=== PATIENT | female | born 1945 | race Caucasian/White ===

== ENCOUNTER 2021-02-20 19:37 | Emergency (ER) | payer OTHER, SELFPAY ==
[2021-02-20] VITALS (10 sets, daily range): BP systolic 122–193; BP diastolic 69–97; PULSE 70–75; RESP 14–24; TEMP 36.4; O2SAT 95–99
--- NOTE | 2021-02-20 19:42 | DI.RAD.S_ITS ---
PROCEDURE: XR CHEST 2V INDICATIONS: shortness of breath TECHNIQUE: 2 views of the chest were acquired. COMPARISON: None. FINDINGS: Surgical changes and devices: Apparent vascular stent projecting superior to the aortic arch.. Lungs and pleura: There is hyperaeration of the lungs with flattening of the hemidiaphragms. Increased retrosternal clear space. No pleural effusions or pneumothorax. No focal airspace disease. Mediastinum: Mediastinal contours are normal. Heart size is normal. Bones and chest wall: No suspicious bony abnormalities. Soft tissues appear unremarkable. Diffuse osteopenia. Age-indeterminate a chronic appearing anterior compression deformity of the lower thoracic spine. IMPRESSION: Chest without acute cardiopulmonary abnormalities. Findings suggestive of sequela of chronic obstructive pulmonary physiology. Dictated by: Georges Hung M.D. on 02/20/2021 at 20:22 Approved by: Georges Hung M.D. on 02/20/2021 at 20:24
[2021-02-20 21:27] LABS: Add Manual Diff / Slide Review NO; Basophils Absolute Auto 0 /uL (0-100); Basophils Percent Auto 0.6 % (0-2); Eosinophils Absolute Auto 300 /uL (0-450); Hematocrit 40.3 % (36-46); Hemoglobin 13.6 g/dL (12.0-16.0); Lymphocytes Absolute Auto 2200 /uL (1100-4500); Lymphocytes Percent Auto 32.9 % (25-40); Mean Corpuscular HGB Conc 33.8 % (30-36); Mean Corpuscular Hemoglobin 31.4 PG (26-34); Mean Corpuscular Volume 92.7 fL (80-100); Monocytes Absolute Auto 500 /uL (0-900); Monocytes Percent Auto 7.5 % (3-14); Neutrophils Absolute Auto 3500 /uL (1500-7000); Platelet Count 253 X10^3/uL (150-400); Red Blood Cell Count 4.34 X10^6/uL (4.0-5.2); Red Cell Distribution Width 13.1 % (11.6-14.8); White Blood Cell Count 6.6 X10^3/uL (4.5-11.0)
[2021-02-20 21:35] LABS: Lactate (Lactic Acid) 1.4 mmol/L (0.7-2.1)
[2021-02-20 21:37] LABS: Alanine Aminotransferase 18 IU/L (<35); Albumin 4.2 g/dL (3.5-5.0); Albumin Globulin Ratio 1.4 (1.0-2.8); Alkaline Phosphatase 75 U/L (38-126); Aspartate Aminotransferase 29 IU/L (14-36); BUN Creatinine Ratio 23.1 (6-22); Bilirubin Total 0.4 mg/dL (0.2-1.3); Blood Urea Nitrogen 15 mg/dL (7-17); Calcium 9.8 mg/dL (8.4-10.2); Carbon Dioxide 31 mmol/L (22-32); Chloride 107 mmol/L (98-107); Estimated Glomerular Filt Rate > 60.0 mL/min (>60); Globulin 3.1 g/dL (1.7-4.1); Glucose 121 mg/dL (80-110); HEMOLYSIS 16 (0-50); Sodium 140 mmol/L (137-145); Total Protein 7.3 g/dL (6.3-8.2)
[2021-02-20 21:39] LABS: COVID19 -Nasal RAPID Negative (Negative)
--- NOTE | 2021-02-20 22:18 | ED_ITS ---
HPI - General Adult General Chief complaint: Shortness of Breath/Dyspnea Stated complaint: SOB Time Seen by Provider: 02/20/21 20:45 Source: patient and EMS Mode of arrival: EMS History of Present Illness HPI narrative: Patient is a 75-year-old female here for evaluation of shortness of breath specifics the shortness of breath on exertion. The symptoms been going on for the past several months. She has been seen at an outside facility for this. She was told that it was anxiety. She has not followed up with her primary doctor. She denies chest pain. No lower extremity swelling. No fevers. No cough. She states that her primary doctor is weaning her off of clonazepam. She is upset with her primary doctor because she went a week without a refill of this medication and she states that she went into detox. She stated this was a very unpleasant experience. She went to walk-in clinic. Was given another prescription for clonazepam. She is here for continued shortness of breath Related Data Previous Rx's Medication Instructions Recorded isosorbide mononitrate 30 mg 30 mg PO DAILY #60 tab 02/20/21 tablet,extended release 24 hr Review of Systems Constitutional Constitutional: Denies fever(s) Cardiovascular Cardiovascular: Denies chest pain, Reports dyspnea and Reports dyspnea on exertion Respiratory Respiratory: Reports dyspnea and Reports dyspnea on exertion Gastrointestinal Gastrointestinal: Reports system reviewed and no additional complaints, except as documented Integumentary/Breasts Skin/Breast: Reports system reviewed and no additional complaints, except as documented Neurologic Neurologic: Reports system reviewed and no additional complaints, except as documented Psychiatric Psychiatric: Reports anxiety Hematologic/Lymphatic On Anticoagulants: No Patient History Medical History Anxiety Hypertension Social History lives independently: Yes Exam Initial Vital Signs Initial Vital Signs: Vital Signs Temperature 97.5 F L 02/20/21 19:40 Pulse Rate 74 02/20/21 19:40 Respiratory Rate 18 02/20/21 19:40 Blood Pressure 150/97 H 02/20/21 19:40 Pulse Oximetry 98 02/20/21 19:40 Const General: cooperative and comfortable HENMT Head: normal to inspection and normocephalic Resp Effort & Inspection: normal respiratory effort Auscultation: clear to auscultation bilaterally Cardio Rate: regular rate Rhythm: regular rhythm GI Inspection: normal to inspection Skin General: no rashes or lesions noted Neuro General: patient alert, patient awake and moves all extremities Speech: speech normal Psych Appearance: well kempt Affect: anxious affect Course Orders Ordered: ED Orders 02/20/21 19:42 XR chest 2V Stat EKG-12 Lead Stat Measure peak expiratory flow ONCE RT Consult Eval and Treat Now 02/20/21 21:00 COVID19 -Nasal swab/Pre-Proc Stat 02/20/21 21:10 Complete Blood Count AUTO DIFF Stat Comprehensive Metabolic Panel Stat Lactate (Lactic Acid) Stat Vital Signs Vital signs: Vital Signs - 8 hr 02/20/21 20:50 02/20/21 20:51 02/20/21 21:19 Pulse Rate 75 74 72 Respiratory Rate Blood Pressure 144/69 H 122/83 Pulse Oximetry 98 99 99 02/20/21 21:30 02/20/21 21:31 02/20/21 22:00 Pulse Rate 74 74 70 Respiratory Rate 14 14 21 Blood Pressure 170/76 H Pulse Oximetry 98 98 96 02/20/21 22:01 02/20/21 22:30 02/20/21 22:44 Pulse Rate 70 73 75 Respiratory Rate 24 16 Blood Pressure 193/84 H 158/78 H Pulse Oximetry 95 98 Medical Decision Making Lab Data Lab results reviewed: Yes I reviewed the patient's lab results. Result diagrams: 02/20/21 21:10 02/20/21 21:10 Labs: Lab Results 02/20/21 02/20/21 02/20/21 Range/Units 21:00 21:10 21:10 WBC 6.6 (4.5-11.0) X10^3/uL RBC 4.34 (4.0-5.2) X10^6/uL Hgb 13.6 (12.0-16.0) g/dL Hct 40.3 (36-46) % MCV 92.7 (80-100) fL MCH 31.4 (26-34) PG MCHC 33.8 (30-36) % RDW 13.1 (11.6-14.8) % Plt Count 253 (150-400) X10^3/uL Neut % (Auto) 54.0 (50-75) % Lymph % (Auto) 32.9 (25-40) % [place] % (Auto) 7.5 (3-14) % Eos % (Auto) 5.0 H (2-4) % Baso % (Auto) 0.6 (0-2) % Neut # (Auto) 3500 (2207-7389) /uL Lymph # (Auto) 2200 (2949-7299) /uL [place] # (Auto) 500 (0-900) /uL Eos # (Auto) 300 (0-450) /uL Baso # (Auto) 0 (0-100) /uL Sodium 140 (137-145) mmol/L Potassium 4.0 (3.4-5.1) mmol/L Chloride 107 (98-107) mmol/L Carbon Dioxide 31 (22-32) mmol/L BUN 15 (7-17) mg/dL Creatinine 0.65 (0.52-1.04) mg/dL Estimated GFR > 60.0 (>60) mL/min BUN/Creatinine Ratio 23.1 H (6-22) Glucose 121 H (80-110) mg/dL Lactate (0.7-2.1) mmol/L Calcium 9.8 (8.4-10.2) mg/dL Total Bilirubin 0.4 (0.2-1.3) mg/dL AST 29 (14-36) IU/L ALT 18 (<35) IU/L Alkaline Phosphatase 75 (38-126) U/L Total Protein 7.3 (6.3-8.2) g/dL Albumin 4.2 (3.5-5.0) g/dL Globulin 3.1 (1.7-4.1) g/dL Albumin/Globulin Ratio 1.4 (1.0-2.8) SARS-CoV-2 (PCR) Negative (Negative) 02/20/21 Range/Units 21:10 WBC (4.5-11.0) X10^3/uL RBC (4.0-5.2) X10^6/uL Hgb (12.0-16.0) g/dL Hct (36-46) % MCV (80-100) fL MCH (26-34) PG MCHC (30-36) % RDW (11.6-14.8) % Plt Count (150-400) X10^3/uL Neut % (Auto) (50-75) % Lymph % (Auto) (25-40) % [place] % (Auto) (3-14) % Eos % (Auto) (2-4) % Baso % (Auto) (0-2) % Neut # (Auto) (2344-0846) /uL Lymph # (Auto) (2489-1227) /uL [place] # (Auto) (0-900) /uL Eos # (Auto) (0-450) /uL Baso # (Auto) (0-100) /uL Sodium (137-145) mmol/L Potassium (3.4-5.1) mmol/L Chloride (98-107) mmol/L Carbon Dioxide (22-32) mmol/L BUN (7-17) mg/dL Creatinine (0.52-1.04) mg/dL Estimated GFR (>60) mL/min BUN/Creatinine Ratio (6-22) Glucose (80-110) mg/dL Lactate 1.4 (0.7-2.1) mmol/L Calcium (8.4-10.2) mg/dL Total Bilirubin (0.2-1.3) mg/dL AST (14-36) IU/L ALT (<35) IU/L Alkaline Phosphatase (38-126) U/L Total Protein (6.3-8.2) g/dL Albumin (3.5-5.0) g/dL Globulin (1.7-4.1) g/dL Albumin/Globulin Ratio (1.0-2.8) SARS-CoV-2 (PCR) (Negative) Imaging Data Chest x-ray: Radiologist's Impression: [address] [address] XRay Report Signed Patient: Luzma Frank MR#: [id number] : 1945 Acct:[id number] Age/Sex: 75 / F Date of Service: 02/20/21 Loc: ED Accession Number: [id number] ?? Procedure: XR chest 2V Ordering Provider: Zeb Bowers D.O. PROCEDURE:? XR CHEST 2V ? INDICATIONS:? shortness of breath ? TECHNIQUE:? 2 views of the chest were acquired.? ? COMPARISON:? None. ? FINDINGS:? ? Surgical changes and devices:? Apparent vascular stent projecting superior to the aortic arch..? ? Lungs and pleura:? There is hyperaeration of the lungs with flattening of the hemidiaphragms.? Increased retrosternal clear space.? No pleural effusions or pneumothorax.? No focal airspace disease. ? Mediastinum:? Mediastinal contours are normal.? Heart size is normal.? ? Bones and chest wall:? No suspicious bony abnormalities.? Soft tissues appear unremarkable.? Diffuse osteopenia.? Age-indeterminate a chronic appearing anterior compression deformity of the lower thoracic spine. ? IMPRESSION:? Chest without acute cardiopulmonary abnormalities.? Findings suggestive of sequela of chronic obstructive pulmonary physiology. ? ? Dictated by: Georges Hung M.D. on 02/20/2021 at 20:22 ? ? Approved by: Georges Hung M.D. on 02/20/2021 at 20:24? ECG Data Attestation: I personally reviewed and interpreted this ECG as follows: Interpretation: Sinus rhythm Ventricular rate of 73 Normal axis Normal QRS Normal QTC No ST T wave changes MDM Narrative Medical decision making narrative: Patient has had shortness of breath for the past several months. Her EKG is unremarkable. Vital signs unremarkable. Physical exam is unremarkable. Chest x-ray is negative. Low suspicion for pneumonia. Low suspicion for ACS. Patient is obviously very anxious. She was very focused on the issue that she had with her clonazepam prescription in her primary doctor. She also states that she is out of her isosorbide. She states that ?no one ?will refill it for her. She has not seen her primary doctor to discuss the problems breathing. I feel that no further workup is needed in the emergency department based on her h istory and physical what has been done so far here in the ER. I suspect that there is a strong anxiety component to her symptoms. She was informed that she needs to follow up with her primary doctor to discuss further workup if needed with pulmonology or pulmonary function testing. She was given return precautions. She expressed understanding agreement. Discharge Plan Departure Patient Disposition: Home Clinical Impression: Shortness of breath on exertion Instructions: How to Manage Shortness of Breath Activity Restrictions/Additional Instructions: I do recommend that you talk with your primary doctor about further workup to include the indications for either pulmonary function test or a referral to see pulmonology. Continue to take all of your medications as directed. Return to the emergency department for any new or worsening symptoms Prescriptions: New isosorbide mononitrate 30 mg tablet extended release 24 hr 30 mg PO DAILY Qty: 60 2RF Referrals: Tommy Cintron MD [Primary Care Provider] -
== END 2021-02-20 23:26 | disposition home or self-care (01) ==
PROVIDERS: Emergency Provider Emergency Medicine; PCP Family Medicine
DX: R06.02 Shortness of breath (principal); I10 Essential (primary) hypertension; Z20.822 Contact with and (suspected) exposure to COVID-19
CPT/HCPCS: 71046; 80053; 83605; 85025; 87635; 93005; 93010; 99283; 99284; C9803

== ENCOUNTER → 2022-06-14 14:14 | Outpatient (CLI) | payer OTHER, SELFPAY ==
--- NOTE | 2022-06-14 | DI.MRI.S_ITS ---
PROCEDURE: MR LUMBAR SPINE WO CON INDICATIONS: Spinal stenosis, lumbar region TECHNIQUE: Noncontrast sagittal T1 spin echo and T2 fast echo, sagittal STIR, and T2 fast spin echo through the lumbar spine. In cases with scoliosis, additional coronal T2 fast spin echo may be performed. COMPARISON: [facility], MR, L-SPINE WITHOUT CONTRAST, 12/01/2016, 16:27. [facility], CR, XR LUMBAR SPINE 2 OR 3 VIEWS, 08/23/2021, 16:13. FINDINGS: Image quality: Diagnostic. Alignment and Curvature: Mild levoconvex scoliotic curvature is noted. Bone Marrow: Marrow is of normal overall signal. No acute vertebral body compression fractures. There is a remote mild T12 anterior wedge deformity, with 10% loss of height anteriorly, which is similar to 2017. Spinal Cord: Conus medullaris terminates at the L1 level. Visualized cord demonstrates normal signal and size. Paraspinous Soft Tissues: No paravertebral masses. T11-T12: Mild loss of disc height is seen. Loss of disc signal is seen. Mild to moderate disc bulge is seen, which is eccentric to the left. No significant neural foraminal or central canal narrowing can be seen. T12-L1: The disc height is well-preserved. Loss of disc signal is seen at this level. Mild disc bulge is seen, with a central/left disc osteophyte protrusion. No significant neural foraminal or central canal narrowing can be seen. Stable from the prior study. L1-L2: The disc height is well-preserved. Loss of disc signal is seen at this level. Mild generalized disc bulge is seen. Mild facet joint hypertrophy is seen. There is mild right-sided and no left-sided neural foraminal narrowing. Minimal central canal narrowing is seen. There is mild progression compared to 2017. L2-L3: The disc height is well-preserved. Loss of disc signal is seen at this level. Mild to moderate disc bulge is seen. Mild to moderate facet hypertrophy is seen. There is mild right-sided and no left-sided neural foraminal narrowing. [id number] central canal narrowing is seen. These imaging findings have progressed compared to the prior study. L3-L4: Mild loss of disc height is seen. Loss of disc signal is seen. Moderate generalized disc bulge is seen, which is eccentric to the left. There is a superimposed central disc protrusion. Moderate facet joint hypertrophy is seen. There is mild left-sided and no right-sided neural foraminal narrowing. Moderate central canal narrowing is seen. These degenerative changes are worse than in 2017. L4-L5: The disc height is well-preserved. Loss of disc signal is seen at this level. Mild to moderate disc bulge is seen. Mild to moderate facet hypertrophy can be seen. There is mild bilateral neural foraminal narrowing seen, right worse than left. Mild central canal narrowing is seen. When comparison is made with the prior images, these findings are similar. L5-S1: The disc height is well-preserved. Loss of disc signal is seen at this level. Mild generalized disc bulge is seen. Moderate facet joint hypertrophy is seen. No significant neural foraminal or central canal narrowing can be seen. When comparison is made with the prior images, these findings are similar. Tarlov cysts (perineural cysts) can be seen involving several neural foramina as well as the S2 level, which are unchanged from the prior. IMPRESSION: Multiple levels of lumbar spine degenerative change can be seen, which are progressed at several levels compared to 2017. Mild levoconvex scoliotic curvature is noted. Additional findings: Remote T12 anterior wedge deformity Peroneal cysts Dictated by: Rosalio Peguero M.D. on 06/14/2022 at 16:28 Approved by: Rosalio Peguero M.D. on 06/14/2022 at 16:33
== END ==
PROVIDERS: PCP Nurse Practitioner Family; Referring Provider Physical Medicine & Rehabilitation; Visit Provider Physical Medicine & Rehabilitation
DX: M48.062 Spinal stenosis, lumbar region with neurogenic claudication (principal); M47.816 Spondylosis without myelopathy or radiculopathy, lumbar region; M47.817 Spondylosis without myelopathy or radiculopathy, lumbosacral region; M41.9 Scoliosis, unspecified; G96.191 Perineural cyst; M48.54XS Collapsed vertebra, not elsewhere classified, thoracic region, sequela of fracture; Z95.5 Presence of coronary angioplasty implant and graft
CPT/HCPCS: 72148

== ENCOUNTER 2023-10-02 12:15 | Emergency (ER) | payer MEDICARE, OTHER, SELFPAY ==
[2023-10-02] VITALS (17 sets, daily range): BP systolic 107–167; BP diastolic 53–127; PULSE 58–98; RESP 14–18; TEMP 37.3; O2SAT 93–98; BMI 21.0
--- NOTE | 2023-10-02 12:38 | DI.RAD.S_ITS ---
PROCEDURE: XR CHEST 1V INDICATIONS: chest pain TECHNIQUE: One view of the chest was acquired. COMPARISON: [facility], CR, XR CHEST 2V, 02/20/2021, 20:01. FINDINGS: Surgical changes and devices: Coronary artery stent, question cholecystectomy clips Lungs and pleura: Lungs are clear. No pleural effusions or pneumothorax. Mediastinum: Mediastinal contours appear normal. Heart size is normal. Bones and chest wall: No suspicious bony lesions. Overlying soft tissues appear unremarkable. IMPRESSION: No acute cardiopulmonary abnormality is seen. Dictated by: Urbano Maxwell M.D. on 10/02/2023 at 14:18 Approved by: Urbano Maxwell M.D. on 10/02/2023 at 14:19
[2023-10-02 13:02] LABS: Add Manual Diff / Slide Review NO; Basophils Absolute Auto 100 /uL (0-100); Basophils Percent Auto 0.6 % (0-2); Eosinophils Absolute Auto 200 /uL (0-450); Hematocrit 42.2 % (36-46); Hemoglobin 14.1 g/dL (12.0-16.0); Lymphocytes Absolute Auto 600 /uL (1100-4500); Lymphocytes Percent Auto 3.2 % (25-40); Mean Corpuscular HGB Conc 33.4 % (30-36); Mean Corpuscular Hemoglobin 30.7 PG (26-34); Monocytes Absolute Auto 1000 /uL (0-900); Monocytes Percent Auto 5.7 % (3-14); Neutrophils Absolute Auto 15500 /uL (1500-7000); Neutrophils Percent Auto 89.5 % (50-75); Platelet Count 255 X10^3/uL (150-400); Red Blood Cell Count 4.59 X10^6/uL (4.0-5.2); Red Cell Distribution Width 13.3 % (11.6-14.8); White Blood Cell Count 17.4 X10^3/uL (4.5-11.0)
[2023-10-02 13:07] LABS: INR 0.9 (0.9-1.3)
--- NOTE | 2023-10-02 13:08 | EKG_ITS ---
[address] [address] [address], [place] [address] Test Date: 2023-10-02 Pat Name: Luzma Frank Department: [facility] Room: Gender: Female [employer]ister: HORACIO : 1945 Requested By: Order Number: [id number] Reading MD: Mono Watts Measurements Intervals [place] Rate: 91 P: 75 TX: 134 QRS: 27 QRSD: 68 T: 82 QT: 376 QTc: 462 Interpretive Statements Normal sinus rhythm Electronically Signed On 10-08-2023 9:08:23 PDT by Mono Watts
[2023-10-02 13:09] LABS: PTT Partial Thromboplastin Tim 32 SECONDS (25.1-36.5)
[2023-10-02 13:16] LABS: Alanine Aminotransferase 17 IU/L (<35); Albumin 4.2 g/dL (3.5-5.0); Albumin Globulin Ratio 1.5 (1.0-2.8); Alkaline Phosphatase 84 U/L (38-126); Aspartate Aminotransferase 21 IU/L (14-36); BUN Creatinine Ratio 26.3 (6-22); Bilirubin Total 0.8 mg/dL (0.2-1.3); Blood Urea Nitrogen 20 mg/dL (7-17); Calcium 9.4 mg/dL (8.4-10.2); Carbon Dioxide 18 mmol/L (22-32); Chloride 109 mmol/L (98-107); Creatine Kinase 63 U/L (30-135); Estimated Glomerular Filt Rate > 60 mL/min (>60); Globulin 2.8 g/dL (1.7-4.1); Glucose 191 mg/dL (80-110); HEMOLYSIS < 15 (0-50); Lipase 75 U/L (23-300); Magnesium 1.7 mg/dL (1.6-2.3); Potassium 4.3 mmol/L (3.4-5.1); Sodium 138 mmol/L (137-145)
[2023-10-02 13:29] LABS: NT-proBNP (BNP-Adult 18+) 84 pg/mL (<450); Troponin I < 0.012 ng/mL (0.01-0.034)
--- NOTE | 2023-10-02 14:40 | ED.DIZZY ---
HPI - Dizziness <Jim Chambers MD - Last Filed: 10/03/23 08:17> General Chief Complaint: Dizziness Stated Complaint: ams Time Seen by Provider: 10/02/23 13:40 Source: patient Mode of arrival: EMS History of Present Illness HPI Narrative: 78-year-old female complains of dizziness and generalized weakness today, thinks that she might have been taking less oral intake, does not admit to recently feeling sick, denies fevers, denies headache, denies pain to neck chest upper back lower back flanks, denies pain to abdomen pelvis. Denies lower extremity pain. Denies upper extremity pain. She does not have a spinning sensation to her dizziness. She denies chest pain or shortness of breath. She denies nausea or vomiting. Apparently she spoke with her dentist, who had concerns that she might be having withdrawal from clonazepam, who might have called 911. Patient has not taken clonazepam since June 2023, does not have a current supply, denies recent use. Denies drug or alcohol use. Denies injury or trauma. Denies new medication changes. Related Data Previous Rx's Medication Instructions Recorded isosorbide mononitrate 30 mg 30 mg PO DAILY #60 tabs 02/20/21 tablet,extended release 24 hr Allergies Allergy/AdvReac Type Severity Reaction Status Date / Time prednisone Allergy Verified 10/02/23 12:19 shellfish derived Allergy Verified 10/02/23 12:19 Review of Systems <Jim Chambers MD - Last Filed: 10/03/23 08:17> Review of Systems Narrative: see HPI Patient History <Jim Chambers MD - Last Filed: 10/03/23 08:17> Medical History Anxiety Hypertension Social History lives independently: Yes Smoking Status: Unknown if ever smoked Smoking Status: Unknown if ever smoked alcohol intake frequency: holidays/special occasions only Substance Use Type: does not use Exam <Jim Chambers MD - Last Filed: 10/03/23 08:17> Narrative Exam Narrative: GENERAL: Well-developed patient, in mild distress. HEAD: Atraumatic. Normocephalic. EYES: Pupils equal round and reactive. Extraocular motions intact. No scleral icterus. No injection or drainage. ENT: Nose without bleeding, purulent drainage. Throat without erythema, tonsillar hypertrophy or exudate. Airway patent. NECK: Trachea midline. Non tender CARDIOVASCULAR: Regular rate and rhythm without murmurs, gallops, or rubs. RESPIRATORY: Clear to auscultation. Breath sounds equal bilaterally. No wheezes, rales, or rhonchi. GASTROINTESTINAL: Abdomen soft, non-tender, nondistended. EXTREMITIES: No edema or joint tenderness. BACK: Nontender without deformity or crepitance. No flank tenderness. NEURO: AOx3. Nonfocal neuro exam. Cranial nerves unremarkable. Motor 5/5 upper extremities. Motor 5/5 lower extremities. [id number] testing normal and brisk. SKIN: No rash or erythema of visible areas Initial Vital Signs Initial Vital Signs: Vital Signs Temperature 99.1 F 10/02/23 12:15 Pulse Rate 98 H 10/02/23 12:15 Respiratory Rate 14 10/02/23 12:15 Blood Pressure 167/124 H 10/02/23 12:15 Pulse Oximetry 96 10/02/23 12:15 Oxygen Delivery Method Room Air 10/02/23 12:15 <Zeb Bowers DO - Last Filed: 10/03/23 01:16> Initial Vital Signs Initial Vital Signs: Vital Signs Temperature 99.1 F 10/02/23 12:15 Pulse Rate 98 H 10/02/23 12:15 Respiratory Rate 14 10/02/23 12:15 Blood Pressure 167/124 H 10/02/23 12:15 Pulse Oximetry 96 10/02/23 12:15 Oxygen Delivery Method Room Air 10/02/23 12:15 Course <Jim Chambers MD - Last Filed: 10/03/23 08:17> Orders Ordered: Discontinued Medications Sodium Chloride (Normal Saline 0.9%) 1,000 mls @ 1,000 mls/hr IV BOLUS ONE Stop: 10/02/23 15:44 Last Infusion: 10/02/23 15:52 Dose: Infused Documented By: Admin: 10/02/23 14:52 Dose: 1,000 mls/hr Documented By: FRANC Vital Signs Vital signs: Vital Signs - 8 hr 10/02/23 17:30 10/02/23 18:00 10/02/23 19:00 Pulse Rate 81 76 76 Respiratory Rate Blood Pressure Pulse Oximetry 97 93 97 Oxygen Delivery Method 10/02/23 19:30 10/02/23 19:56 10/02/23 19:56 Pulse Rate 68 73 Respiratory Rate 18 Blood Pressure 149/82 H Pulse Oximetry 95 96 Oxygen Delivery Method Room Air Room Air <Zeb Bowers DO - Last Filed: 10/03/23 01:16> Orders Ordered: Discontinued Medications Sodium Chloride (Normal Saline 0.9%) 1,000 mls @ 1,000 mls/hr IV BOLUS ONE Stop: 10/02/23 15:44 Last Infusion: 10/02/23 15:52 Dose: Infused Documented By: Admin: 10/02/23 14:52 Dose: 1,000 mls/hr Documented By: FRANC Vital Signs Vital signs: Vital Signs - 8 hr 10/02/23 17:30 10/02/23 18:00 10/02/23 19:00 Pulse Rate 81 76 76 Respiratory Rate Blood Pressure Pulse Oximetry 97 93 97 Oxygen Delivery Method 10/02/23 19:30 10/02/23 19:56 10/02/23 19:56 Pulse Rate 68 73 Respiratory Rate 18 Blood Pressure 149/82 H Pulse Oximetry 95 96 Oxygen Delivery Method Room Air Room Air MDM - Dizziness <Jim Chambers MD - Last Filed: 10/03/23 08:17> Lab Data Attestation: I reviewed the patient's lab results. 10/02/23 12:52 10/02/23 12:52 Labs: Lab Results 10/02/23 10/02/23 10/02/23 Range/Units 12:52 12:58 14:54 WBC 17.4 H (4.5-11.0) X10^3/uL RBC 4.59 (4.0-5.2) X10^6/uL Hgb 14.1 (12.0-16.0) g/dL Hct 42.2 (36-46) % MCV 92.0 (80-100) fL MCH 30.7 (26-34) PG MCHC 33.4 (30-36) % RDW 13.3 (11.6-14.8) % Plt Count 255 (150-400) X10^3/uL Neut % (Auto) 89.5 H (50-75) % Lymph % (Auto) 3.2 L (25-40) % Falls % (Auto) 5.7 (3-14) % Eos % (Auto) 1.0 L (2-4) % Baso % (Auto) 0.6 (0-2) % Neut # (Auto) 18600 H (0536-9148) /uL Lymph # (Auto) 600 L (6768-5671) /uL Falls # (Auto) 1000 H (0-900) /uL Eos # (Auto) 200 (0-450) /uL Baso # (Auto) 100 (0-100) /uL PT 10.0 (9.4-12.5) SECONDS INR 0.9 (0.9-1.3) APTT 32 (25.1-36.5) SECONDS Sodium 138 (137-145) mmol/L Potassium 4.3 (3.4-5.1) mmol/L Chloride 109 H (98-107) mmol/L Carbon Dioxide 18 L (22-32) mmol/L BUN 20 H (7-17) mg/dL Creatinine 0.76 (0.52-1.04) mg/dL Estimated GFR > 60 (>60) mL/min BUN/Creatinine Ratio 26.3 H (6-22) Glucose 191 H (80-110) mg/dL Lactate 2.8 H (0.7-2.1) mmol/L Calcium 9.4 (8.4-10.2) mg/dL Magnesium 1.7 (1.6-2.3) mg/dL Total Bilirubin 0.8 (0.2-1.3) mg/dL AST 21 (14-36) IU/L ALT 17 (<35) IU/L Alkaline Phosphatase 84 (38-126) U/L Total Creatine Kinase 63 (30-135) U/L Troponin I < 0.012 (0.01-0.034) ng/mL NT-Pro-B Natriuret Pep 84 (<450) pg/mL Total Protein 7.0 (6.3-8.2) g/dL Albumin 4.2 (3.5-5.0) g/dL Globulin 2.8 (1.7-4.1) g/dL Albumin/Globulin Ratio 1.5 (1.0-2.8) Lipase 75 (23-300) U/L Urine Color Urine Appearance Urine pH (4.5-8.0) Ur Specific Commerce (1.000-1.035) Urine Protein (Negative) Urine Glucose (UA) (Negative) g/dL Urine Ketones (NEGATIVE) Urine Occult Blood (Negative) Urine Nitrate (Negative) Urine Bilirubin (NEGATIVE) Urine Urobilinogen (0.2) E.U./dL Ur Leukocyte Esterase (NEGATIVE) Urine RBC (0-5/HPF) Urine WBC (0-5/HPF) Ur Squamous Epith Cells (0-5/HPF) Urine Bacteria (None) Ur Culture Indicated? Vol Urine Centrifuged SARS-CoV-2 (PCR) Negative (Negative) Influenza A (RT-PCR) Flu a negative (NEGATIVE) Influenza B (RT-PCR) Flu b negative (NEGATIVE) RSV (PCR) Negative (Negative) 10/02/23 10/02/23 10/02/23 Range/Units 15:05 15:53 17:19 WBC (4.5-11.0) X10^3/uL RBC (4.0-5.2) X10^6/uL Hgb (12.0-16.0) g/dL Hct (36-46) % MCV (80-100) fL MCH (26-34) PG MCHC (30-36) % RDW (11.6-14.8) % Plt Count (150-400) X10^3/uL Neut % (Auto) (50-75) % Lymph % (Auto) (25-40) % Falls % (Auto) (3-14) % Eos % (Auto) (2-4) % Baso % (Auto) (0-2) % Neut # (Auto) (6384-4582) /uL Lymph # (Auto) (1613-4564) /uL Falls # (Auto) (0-900) /uL Eos # (Auto) (0-450) /uL Baso # (Auto) (0-100) /uL PT (9.4-12.5) SECONDS INR (0.9-1.3) APTT (25.1-36.5) SECONDS Sodium (137-145) mmol/L Potassium (3.4-5.1) mmol/L Chloride (98-107) mmol/L Carbon Dioxide (22-32) mmol/L BUN (7-17) mg/dL Creatinine (0.52-1.04) mg/dL Estimated GFR (>60) mL/min BUN/Creatinine Ratio (6-22) Glucose (80-110) mg/dL Lactate 1.9 (0.7-2.1) mmol/L Calcium (8.4-10.2) mg/dL Magnesium (1.6-2.3) mg/dL Total Bilirubin (0.2-1.3) mg/dL AST (14-36) IU/L ALT (<35) IU/L Alkaline Phosphatase (38-126) U/L Total Creatine Kinase (30-135) U/L Troponin I < 0.012 (0.01-0.034) ng/mL NT-Pro-B Natriuret Pep (<450) pg/mL Total Protein (6.3-8.2) g/dL Albumin (3.5-5.0) g/dL Globulin (1.7-4.1) g/dL Albumin/Globulin Ratio (1.0-2.8) Lipase (23-300) U/L Urine Color Yellow Urine Appearance Clear Urine pH 5.0 (4.5-8.0) Ur Specific Commerce >=1.030 H (1.000-1.035) Urine Protein Negative (Negative) Urine Glucose (UA) Trace H (Negative) g/dL Urine Ketones Negative (NEGATIVE) Urine Occult Blood Negative (Negative) Urine Nitrate Negative (Negative) Urine Bilirubin Negative (NEGATIVE) Urine Urobilinogen 0.2 (0.2) E.U./dL Ur Leukocyte Esterase Negative (NEGATIVE) Urine RBC 0-1/hpf (0-5/HPF) Urine WBC 0-1/hpf (0-5/HPF) Ur Squamous Epith Cells 1-5 /hpf (0-5/HPF) Urine Bacteria Occasional (0-1) (None) Ur Culture Indicated? Cult not indicated Vol Urine Centrifuged 10ml (spun) SARS-CoV-2 (PCR) (Negative) Influenza A (RT-PCR) (NEGATIVE) Influenza B (RT-PCR) (NEGATIVE) RSV (PCR) (Negative) ECG Data Attestation: I personally reviewed and interpreted this ECG as follows: Interpretation: Normal sinus rhythm with rate of 91, no obvious ST segment elevation or depression changes. OR 134, QRS 68, QTC 462. MDM Narrative Medical decision making narrative: 78-year-old female with dizziness today, might have recently been taking less oral intake, does not admit to any infectious symptoms, no focal weakness, no spinning sensation, no cardiopulmonary complaints, does not have any truncal or extremity pain, nor headache or neck pain. Patient concern about withdrawal from clonazepam but last use June 2023. Consider underlying anxiety. Afebrile, sirs screen negative. EKG and troponin negative. Patient denies head injury or headache, nor neck pain, declined CT head study when offered. Other labs pending. White blood cell count [id number], lactate 2.8 elevated, IV fluid bolus. Urinalysis pending. Chest x-ray negative. Abdomen without tenderness. No diarrhea. COVID and flu negative. Repeat lactate to be drawn after completion of IV fluid bolus. Urinalysis still pending Urinalysis negative. Repeat troponin negative. Repeat lactate 1.8 better. Patient says that she still feels dizzy, now wants to have CT scan of the head, this has been ordered. Signed out to oncoming ED physician Dr. Robinson bowers: Received turned over. Review patient's history and physical and workup up to this point. Patient's head CT is unremarkable. I went to talk with the patient. She has had issues with this ?dizziness? since she was taken off her clonazepam approximately 2 months ago. Informed her that she most likely is not withdrawing from this medication since it has been that long since she has taken it. I do feel that she has quite a bit of anxiety. Per her report her primary provider wanted her put her back on an different anxiety medication but she declined this. I reassured patient that I have low suspicion that she is having a CVA/TIA/ACS. Advised that she follow with the primary doctor. She may also benefit from a referral to see ear nose and throat she states she has had issues with her sinuses in the past. She was given return precautions. Will discharge home. <Zeb Bowers, - Last Filed: 10/03/23 01:16> Lab Data Labs: Lab Results 10/02/23 10/02/23 10/02/23 Range/Units 12:52 12:58 14:54 WBC 17.4 H (4.5-11.0) X10^3/uL RBC 4.59 (4.0-5.2) X10^6/uL Hgb 14.1 (12.0-16.0) g/dL Hct 42.2 (36-46) % MCV 92.0 (80-100) fL MCH 30.7 (26-34) PG MCHC 33.4 (30-36) % RDW 13.3 (11.6-14.8) % Plt Count 255 (150-400) X10^3/uL Neut % (Auto) 89.5 H (50-75) % Lymph % (Auto) 3.2 L (25-40) % Falls % (Auto) 5.7 (3-14) % Eos % (Auto) 1.0 L (2-4) % Baso % (Auto) 0.6 (0-2) % Neut # (Auto) 53654 H (7182-0988) /uL Lymph # (Auto) 600 L (8793-8534) /uL Falls # (Auto) 1000 H (0-900) /uL Eos # (Auto) 200 (0-450) /uL Baso # (Auto) 100 (0-100) /uL PT 10.0 (9.4-12.5) SECONDS INR 0.9 (0.9-1.3) APTT 32 (25.1-36.5) SECONDS Sodium 138 (137-145) mmol/L Potassium 4.3 (3.4-5.1) mmol/L Chloride 109 H (98-107) mmol/L Carbon Dioxide 18 L (22-32) mmol/L BUN 20 H (7-17) mg/dL Creatinine 0.76 (0.52-1.04) mg/dL Estimated GFR > 60 (>60) mL/min BUN/Creatinine Ratio 26.3 H (6-22) Glucose 191 H (80-110) mg/dL Lactate 2.8 H (0.7-2.1) mmol/L Calcium 9.4 (8.4-10.2) mg/dL Magnesium 1.7 (1.6-2.3) mg/dL Total Bilirubin 0.8 (0.2-1.3) mg/dL AST 21 (14-36) IU/L ALT 17 (<35) IU/L Alkaline Phosphatase 84 (38-126) U/L Total Creatine Kinase 63 (30-135) U/L Troponin I < 0.012 (0.01-0.034) ng/mL NT-Pro-B Natriuret Pep 84 (<450) pg/mL Total Protein 7.0 (6.3-8.2) g/dL Albumin 4.2 (3.5-5.0) g/dL Globulin 2.8 (1.7-4.1) g/dL Albumin/Globulin Ratio 1.5 (1.0-2.8) Lipase 75 (23-300) U/L Urine Color Urine Appearance Urine pH (4.5-8.0) Ur Specific Commerce (1.000-1.035) Urine Protein (Negative) Urine Glucose (UA) (Negative) g/dL Urine Ketones (NEGATIVE) Urine Occult Blood (Negative) Urine Nitrate (Negative) Urine Bilirubin (NEGATIVE) Urine Urobilinogen (0.2) E.U./dL Ur Leukocyte Esterase (NEGATIVE) Urine RBC (0-5/HPF) Urine WBC (0-5/HPF) Ur Squamous Epith Cells (0-5/HPF) Urine Bacteria (None) Ur Culture Indicated? Vol Urine Centrifuged SARS-CoV-2 (PCR) Negative (Negative) Influenza A (RT-PCR) Flu a negative (NEGATIVE) Influenza B (RT-PCR) Flu b negative (NEGATIVE) RSV (PCR) Negative (Negative) 10/02/23 10/02/23 10/02/23 Range/Units 15:05 15:53 17:19 WBC (4.5-11.0) X10^3/uL RBC (4.0-5.2) X10^6/uL Hgb (12.0-16.0) g/dL Hct (36-46) % MCV (80-100) fL MCH (26-34) PG MCHC (30-36) % RDW (11.6-14.8) % Plt Count (150-400) X10^3/uL Neut % (Auto) (50-75) % Lymph % (Auto) (25-40) % Falls % (Auto) (3-14) % Eos % (Auto) (2-4) % Baso % (Auto) (0-2) % Neut # (Auto) (2569-7522) /uL Lymph # (Auto) (7044-7814) /uL Falls # (Auto) (0-900) /uL Eos # (Auto) (0-450) /uL Baso # (Auto) (0-100) /uL PT (9.4-12.5) SECONDS INR (0.9-1.3) APTT (25.1-36.5) SECONDS Sodium (137-145) mmol/L Potassium (3.4-5.1) mmol/L Chloride (98-107) mmol/L Carbon Dioxide (22-32) mmol/L BUN (7-17) mg/dL Creatinine (0.52-1.04) mg/dL Estimated GFR (>60) mL/min BUN/Creatinine Ratio (6-22) Glucose (80-110) mg/dL Lactate 1.9 (0.7-2.1) mmol/L Calcium (8.4-10.2) mg/dL Magnesium (1.6-2.3) mg/dL Total Bilirubin (0.2-1.3) mg/dL AST (14-36) IU/L ALT (<35) IU/L Alkaline Phosphatase (38-126) U/L Total Creatine Kinase (30-135) U/L Troponin I < 0.012 (0.01-0.034) ng/mL NT-Pro-B Natriuret Pep (<450) pg/mL Total Protein (6.3-8.2) g/dL Albumin (3.5-5.0) g/dL Globulin (1.7-4.1) g/dL Albumin/Globulin Ratio (1.0-2.8) Lipase (23-300) U/L Urine Color Yellow Urine Appearance Clear Urine pH 5.0 (4.5-8.0) Ur Specific Commerce >=1.030 H (1.000-1.035) Urine Protein Negative (Negative) Urine Glucose (UA) Trace H (Negative) g/dL Urine Ketones Negative (NEGATIVE) Urine Occult Blood Negative (Negative) Urine Nitrate Negative (Negative) Urine Bilirubin Negative (NEGATIVE) Urine Urobilinogen 0.2 (0.2) E.U./dL Ur Leukocyte Esterase Negative (NEGATIVE) Urine RBC 0-1/hpf (0-5/HPF) Urine WBC 0-1/hpf (0-5/HPF) Ur Squamous Epith Cells 1-5 /hpf (0-5/HPF) Urine Bacteria Occasional (0-1) (None) Ur Culture Indicated? Cult not indicated Vol Urine Centrifuged 10ml (spun) SARS-CoV-2 (PCR) (Negative) Influenza A (RT-PCR) (NEGATIVE) Influenza B (RT-PCR) (NEGATIVE) RSV (PCR) (Negative) Imaging Data CT scan - head: Radiologist's Impression: PROCEDURE: CT HEAD/BRAIN WO CON INDICATIONS: headache TECHNIQUE: Noncontrast 4.5 mm thick angled axial sections acquired from the foramen magnum to the vertex, with coronal and sagittal reformats. For radiation dose reduction, the following was used: automated exposure control, adjustment of mA and/or kV according to patient size. COMPARISON: None. FINDINGS: Image quality: Diagnostic CSF spaces: Basal cisterns are patent. Lateral ventricles are symmetric. Volume: Vascular calcifications. Periventricular white matter disease is commonly seen with chronic microangiopathy. Volume loss is present. These findings are [id number] Brain: No intracranial hemorrhage. Cardona-white differentiation is grossly maintained. Craniofacial structures: No displaced fracture. Sinuses are clear. Orbits are intact. IMPRESSION: No acute intracranial pathology. If there is high concern for parenchymal pathology, consider further evaluation with MRI. [facility] Narrative Medical decision making narrative: 78-year-old female with dizziness today, might have recently been taking less oral intake, does not admit to any infectious symptoms, no focal weakness, no spinning sensation, no cardiopulmonary complaints, does not have any truncal or extremity pain, nor headache or neck pain. Afebrile, sirs screen negative. EKG and troponin negative. Patient denies head injury or headache, nor neck pain, declined CT head study when offered. Other labs pending. White blood cell count [id number], lactate 2.8 elevated, IV fluid bolus. Urinalysis pending. Chest x-ray negative. COVID and flu negative. Repeat lactate to be drawn after completion of IV fluid bolus. Urinalysis still pending Urinalysis negative. Repeat troponin negative. Repeat lactate 1.8 better. Patient says that she still feels dizzy, now wants to have CT scan of the head, this has been ordered. Signed out to oncoming ED physician Dr. Robinson bowers: Received turned over. Review patient's history and physical and workup up to this point. Patient's head CT is unremarkable. I went to talk with the patient. She has had issues with this ?dizziness? since she was taken off her clonazepam approximately 2 months ago. Informed her that she most likely is not withdrawing from this medication since it has been that long since she has taken it. I do feel that she has quite a bit of anxiety. Per her report her primary provider wanted her put her back on an different anxiety medication but she declined this. I reassured patient that I have low suspicion that she is having a CVA/TIA/ACS. Advised that she follow with the primary doctor. She may also benefit from a referral to see ear nose and throat she states she has had issues with her sinuses in the past. She was given return precautions. Will discharge home. Discharge Plan Departure Patient Disposition: Home Clinical Impression: Dizziness Instructions: DI for Dizziness-Nonvertigo Activity Restrictions/Additional Instructions: I do recommend that you talk with your primary care doctor about potentially any changes to your medications. You can also contact Dr. Gunn of the number provided below. He can be helpful with the dizziness that you are having. Return to the emergency department for new symptoms. Prescriptions: No Action isosorbide mononitrate 30 mg tablet extended release 24 hr 30 mg PO DAILY Qty: 60 2RF Referrals: Dank Gunn MD [Physician] - Diane Martinez ARNP [Primary Care Provider] - Stand Alone Forms: Patient Portal/API
[2023-10-02] MEDS: SODIUM CHLORIDE 0.9% 1,000 ML 1000 ML IV (14:52)
[2023-10-02 15:02] LABS: Lactate (Lactic Acid) 2.8 mmol/L (0.7-2.1)
--- NOTE | 2023-10-02 15:06 | PC.NURSE ---
Pt came to ED today via EMS and states that her dentist called ambulance for her. Pt states that she was on the phone with dentist and then someone from 911 called her and asked her questions that she could not recall. Ambulance showed up at pt's house to take her to the hospital, but pt does not know why dentist called 911. Pt states that she has been detoxing from clonezapam despite her last dose being 06/2023.
[2023-10-02 15:38] LABS: Troponin I < 0.012 ng/mL (0.01-0.034)
[2023-10-02 15:48] LABS: Influenza A - CEPHEID Flu A NEGATIVE (NEGATIVE); Influenza B - CEPHEID Flu B NEGATIVE (NEGATIVE); Respiratory Syncytial Virus Negative (Negative)
[2023-10-02 15:50] LABS: COVID-19 CEPHEID 4-PLEX PCR Negative (Negative)
[2023-10-02 16:24] LABS: Reflexed Lactate in 2 Hours Y
[2023-10-02 16:36] LABS: Lactate 2HR (Lactic Acid Rflx) 1.9 mmol/L (0.7-2.1)
--- NOTE | 2023-10-02 17:24 | PC.NURSE ---
c/o sob. states that she feels like she can't take deep breath. bilateral inspiratory/expiratory wheezes on auscultation. spoke with dr patterson. verbal order for RT eval and treat
[2023-10-02 17:31] LABS: Appearance Urine UA CLEAR; Bilirubin Urine UA NEGATIVE (NEGATIVE); Color Urine UA YELLOW; Glucose Urine UA TRACE g/dL (Negative); Ketones Urine UA NEGATIVE (NEGATIVE); Leukocyte Esterase Urine UA NEGATIVE (NEGATIVE); Nitrite Urine UA NEGATIVE (Negative); Occult Blood Urine UA NEGATIVE (Negative); Protein Urine UA NEGATIVE (Negative); Specific Gravity Urine UA >=1.030 (1.000-1.035); Urobilinogen Urine UA 0.2 E.U./dL (0.2)
[2023-10-02 17:39] LABS: Bacteria Urine Occasional (0-1); RBC Urine 0-1/HPF (0-5/HPF); Squamous Epithelial Cell Urine 1-5 /HPF (0-5/HPF); Urine Volume 10mL (spun); WBC Urine 0-1/HPF (0-5/HPF)
[2023-10-02 17:40] LABS: Culture Indicated Urine Cult Not Indicated
--- NOTE | 2023-10-02 18:16 | DI.CT.S_ITS ---
PROCEDURE: CT HEAD/BRAIN WO CON INDICATIONS: headache TECHNIQUE: Noncontrast 4.5 mm thick angled axial sections acquired from the foramen magnum to the vertex, with coronal and sagittal reformats. For radiation dose reduction, the following was used: automated exposure control, adjustment of mA and/or kV according to patient size. COMPARISON: None. FINDINGS: Image quality: Diagnostic CSF spaces: Basal cisterns are patent. Lateral ventricles are symmetric. Volume: Vascular calcifications. Periventricular white matter disease is commonly seen with chronic microangiopathy. Volume loss is present. These findings are [id number] Brain: No intracranial hemorrhage. Cardona-white differentiation is grossly maintained. Craniofacial structures: No displaced fracture. Sinuses are clear. Orbits are intact. IMPRESSION: No acute intracranial pathology. If there is high concern for parenchymal pathology, consider further evaluation with MRI. Dictated by: Harry Hawkins M.D. on 10/02/2023 at 19:03 Approved by: Harry Hawkins M.D. on 10/02/2023 at 19:04
--- NOTE | 2023-10-02 18:45 | PC.NURSE ---
Pt remains cp free and denies n/v. skin pink warm and dry. a&ox4.
--- NOTE | 2023-10-02 18:51 | PC.NURSE ---
Pt sitting up in bed and very anxious. States that she is unable to get in touch with her friend due to his phone number not working. Pt becoming increasingly agitated.
== END 2023-10-02 20:10 | disposition home or self-care (01) ==
PROVIDERS: Emergency Medicine; Emergency Provider Emergency Medicine; PCP Nurse Practitioner Family
DX: R42 Dizziness and giddiness (principal); R51.9 Headache, unspecified; Z11.52 Encounter for screening for COVID-19
CPT/HCPCS: 0241U; 36415; 70450; 71045; 80053; 81001; 82550; 83605; 83690; 83735; 83880; 84484; 85025; 85610; 85730; 93005; 96360; 99284